=== PATIENT | male | born 1990 | race Caucasian/White ===

== ENCOUNTER 2019-07-26 20:35 | Emergency (ER) | payer OTHER ==
[2019-07-26] MEDS ORDERED: IBUPROFEN 600 MG TABLET PO STA (21:20)
--- NOTE | 2019-07-26 22:15 | ED Physician Documentation ---
PD HPI HEADACHE - Stated complaint Stated Complaint: HD PX/INJ - Chief complaint Chief Complaint: Heent - History obtained from History obtained from: Patient - History of Present Illness Timing - onset: Yesterday Timing - onset during: Other (patient hit his head while in a tight space in an aircraft) Timing - duration: Days (1) Timing - details: Abrupt onset Severity Comments: moderate pain on the top of his head where he hit it Location: Other (top of head) Quality: Aching Associated symptoms: Other (no drainage from ears or nose). No: Fever, Stiff neck, Nausea, Vomiting, Weakness, Numbness, Syncope, Seizure, Eye pain, Vision changes Improved by: Nothing Worsened by: Other (palpation) Contributing factors: No: Anticoagulated, Recent illness Similar symptoms before: Has not had sx before Recently seen: Not recently seen - Treatment prior to arrival Treatment prior to arrival: none - Additional information Additional information: States today he was walking up the stairs and felt dizzy so decided to come to the ED. States he is no longer dizzy at this time. Review of Systems Ten Systems: 10 systems reviewed and negative Constitutional: denies: Fever, Chills Eyes: denies: Loss of vision, Decreased vision, Photophobia Ears: reports: Reviewed and negative. denies: Drainage/discharge Nose: reports: Reviewed and negative Cardiac: reports: Reviewed and negative Respiratory: reports: Reviewed and negative GI: reports: Reviewed and negative. denies: Nausea, Vomiting Skin: reports: Reviewed and negative Musculoskeletal: denies: Neck pain, Back pain Neurologic: reports: Headache, Head injury. denies: Generalized weakness, Focal weakness, Numbness, Difficulty speaking, Near syncope, Syncope, Seizure, Confu sed, Altered mental status, LOC Endocrine: reports: Reviewed and negative PD PAST MEDICAL HISTORY - Past Medical History Past Medical History: No - Allergies Allergies/Adverse Reactions: Allergies Allergy/AdvReac Type Severity Reaction Status Date / Time promazine Allergy Anxiety Verified 07/26/19 20:38 PD ED PE NORMAL - Vitals Vital signs reviewed: Yes - General General: Alert and oriented X 3, No acute distress, Well developed/nourished - HEENT HEENT: Atraumatic, PERRL, EOMI, Ears normal, Moist mucous membranes, Pharynx benign, Dentition benign - Neck Neck: Supple, no meningeal sign, No JVD - Cardiac Cardiac: RRR - Respiratory Respiratory: No respiratory distress - Abdomen Abdomen: Soft, Non tender, Non distended - Male Male : Deferred - Rectal Rectal: Deferred - Derm Derm: Normal color, Warm and dry, No rash, Other (no abrasions or lacerations or bruising ) - Extremities Extremities: No deformity - Neuro Neuro: Alert and oriented X 3, 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 No: Dyscongugate gaze, Nystagmus Results - Vitals Vitals: Vital Signs - 24 hr 07/26/19 20:38 Temperature 36.7 C Heart Rate 54 L Respiratory 16 Rate Blood Pressure 147/98 H O2 Saturation 100 Oxygen O2 Source Room air PD MEDICAL DECISION MAKING - ED course Complexity details: considered differential, d/w patient ED course: 28 y/o M with minor head injury yesterday, no LOC, not anticoagulated. no nausea or vomiting. Minor dizziness earlier today now resolved. No other injuries. No external signs of trauma, normal neuro exam. [place] CT head rules negative. NO indication for emergent imaging. Given ibuprofen for pain. Continue supportive care at home and practice brain rest and f/u with your PCP in case of mild concussion. Departure - Departure Disposition: 01 Home, Self Care Clinical Impression: Headache Qualifiers: Headache type: post-traumatic Headache chronicity pattern: acute headache Intractability: not intractable Qualified Code(s): G44.319 - Acute post- traumatic headache, not intractable Mild concussion Qualifiers: Encounter type: initial encounter Loss of consciousness presence/duration: without LOC Qualified Code(s): S06.0X0A - Concussion without loss of consciousness, initial encounter Condition: Stable Record reviewed to determine appropriate education?: Yes Instructions: ED Concussion Follow-Up: ANIA CARLTON MD [Primary Care Provider] - Within 1 week (to recheck your symptoms and clear you for return to full activity) Comments: You likely have a mild concussion from your head injury. Take 600 to 800mg ibupr ofen very 8 hours for your headache and tylenol as needed for pain. Practice brain rest and avoid strenuous activity until you are cleared by your PCP.
[2019-07-26 22:37] VITALS: BP 148/97
== END 2019-07-26 22:40 | disposition home or self-care (01) ==
LOC: ED 20:35
DX: S06.0X0A Concussion without loss of consciousness, initial encounter (principal); W22.09XA Striking against other stationary object, initial encounter; Y92.813 Airplane as the place of occurrence of the external cause; G44.319 Acute post-traumatic headache, not intractable; R42 Dizziness and giddiness
CPT/HCPCS: 99282; A9270